=== PATIENT | male | born 1960 | race Caucasian/White ===

== ENCOUNTER 2017-03-22 11:11 | Day surgery (SDC) | payer BC, MEDICAID ==
[~2017-03-22 11:11] MED LIST: CHONDR SU A NA/HYALUR INTRAOC KIT (SURGICARE) ONE; FENTANYL CITRATE INJ/PF 100 MCG/2 ML AMPUL ONE; KETOROLAC TROMETHAMINE 0.45% 4 DROP/0.4 ML DROPERETTE OS PRN; LIDOCAINE 1% INJ-PF (10 MG/ML) 30 ML SDV ONE; MIDAZOLAM 2 MG/2 ML INJ ONE; PHENYLEPHRINE/KETOROLAC 1%-0.3% 4 ML VIAL ONE
[2017-03-22] MEDS: TROPICAMIDE 1% OPH SOLN 3 ML OS PRN ×3 (11:35→11:53)
[2017-03-22] MEDS ORDERED: MIDAZOLAM 2 MG/2 ML INJ ONE ×3 (11:35→12:09)
[2017-03-22] MEDS: TETRACAINE HCL 0.5% OPH SOLN 2 ML OS PRN ×3 (11:35→12:00)
[2017-03-22] MEDS: CYCLOPENTOLATE 0.2%/PHENYLEPHRINE 1% OPH SOLN 2 ML OS PRN ×3 (11:36→11:53)
[2017-03-22] MEDS: BESIFLOXACIN HCL 0.6% OPH SUSP 5 ML BOTTLE OS PRN ×4 (11:37→12:26)
[2017-03-22] MEDS ORDERED: TRYPAN BLUE 0.06 % OPH SOLN 0.5 ML DISP.SYRIN ONE (12:11)
--- NOTE | 2017-03-23 07:37 | [facility] OPERATIVE REPORT E ---
[facility] Operative Report NAME: JITENDRA SAMAYOA AGE: 57Y DATE OF SURGERY: 03/22/2017 ROOM: PREOPERATIVE DIAGNOSIS: AGE-RELATED CATARACT, LEFT EYE, POSTOPERATIVE DIAGNOSIS: AGE-RELATED CATARACT, LEFT EYE, OPERATION: Complex cataract extraction with use of Trypan Blue dye to prevent cortical spoking and insertion of a Toric IOL, left eye. SURGEON: CYNTHIA GRANT M.D. ANESTHESIA: Topical. PROCEDURE: After obtaining appropriate consent, the patient's left eye was prepped and draped in sterile fashion as well as the surgeon in a sterile manner and cataract surgery was started. First a paracentesis blade was used to make a small side-port incision. Viscoelastic was used to inflate the anterior chamber. Next a 2.4-mm incision was made with the paracentesis blade. A continuous capsulorrhexis incision was made using a cystotome and Utrata forceps. Following this hydrodissection was carried out to make the lens fully loose and mobile and it was rotated 90 degrees. Following this, a fkendl-zmw-wwxrtor technique was used to phacoemulsify the lens with a CDE of 4.15. The remaining cortex was removed with irrigation/aspiration. Provisc was instilled into the capsular bag to inflate the bag. A SN6AT5, 13.5 diopter lens was placed, rotated to 88 degrees. The remaining viscoelastic material was removed with irrigation/aspiration. Following this, a 10-0 nylon suture was used to close the incision and it was found to be watertight. Vigamox was instilled in the eye and a protective shield was placed over the eye. The patient returned to the postoperative recovery in stable condition. Due to dense cortical spoking, I had poor visualization of the anterior capsule; therefore, a Trypan Blue dye was used to stain the anterior capsule. DICTATING PHYSICIAN: CYNTHIA GRANT M.D. [id number] PHY#: [id number] ID: [id number] JOB#: [id number] ACCT: [id number] cc:CYNTHIA GRANT M.D. >
--- NOTE | 2017-03-23 07:38 | [facility] DISCHARGE SUMMARY E ---
[facility] Discharge Summary NAME: JITENDRA SAMAYOA AGE: 57Y ADMITTED: 03/22/2017 DISCHARGED: 03/22/2017 DIAGNOSIS: Other age-related cataract of the left eye requiring Trypan Blue dye due to dense cortical spoking. SUMMARY: This is a 57-year-old male who underwent complex cataract extraction with insertion of a Toric IOL introduced with Trypan Blue dye. He underwent surgery because he was having difficulty reading. The patient also has trouble seeing road signs. DISCHARGE INSTRUCTIONS: He should be on a regular diet, no bending at his waist, and no heavy lifting. The patient should use Besivance, Ilevro and Durezol at 3 p.m. and 8 p.m. and sleep with a rigid shield. I will see him for the 1-day postoperative tomorrow. DICTATING PHYSICIAN: CYNTHIA GRANT M.D. [id number] PHY#: [id number] ID: [id number] JOB#: [id number] ACCT: [id number] cc:CYNTHIA GRANT M.D. > MTDD
== END 2017-03-22 12:57 | disposition home or self-care (01) ==
LOC: SC 11:11
PROVIDERS: ATTEND Internal Medicine
PROC: 08RK3JZ Replacement of Left Lens with Synthetic Substitute, Percutaneous Approach (ICD-10-PCS; principal; 2017-03-22 10:30)
DX: H25.813 Combined forms of age-related cataract, bilateral (principal); H57.03 Miosis
CPT/HCPCS: 66982; V2787; J2250; J3490 ×5; C9447; 142; J3010